=== PATIENT | male | born 1960 | race Caucasian/White ===

== ENCOUNTER → 2024-12-04 12:26 | Outpatient (CLI) | payer OTHER, MEDICARE, SELFPAY ==
--- NOTE | 2024-12-04 12:30 | DI.RAD.S_ITS ---
PROCEDURE: XR KNEE RT 3V INDICATIONS: Chronic R knee pain TECHNIQUE: 3 views of the knee were acquired. COMPARISON: None. FINDINGS AND IMPRESSION: Moderate to severe tricompartmental osteoarthritic changes with joint space narrowing and significant osteophytes, worst in the medial compartment. Chondrocalcinosis and intra-articular debris and ossified bodies are suspected. [id number] joint effusion. Possible soft tissue calcifications in the proximal calf. Age-indeterminate possible deformities of the proximal tibial shaft and the lateral tibial plateau. Correlate with history of trauma. If there is high concern for further derangement, consider MRI evaluation. Dictated by: Ishaan Constantino M.D. on 12/04/2024 at 16:01 Approved by: Ishaan Constantino M.D. on 12/04/2024 at 16:02
== END ==
PROVIDERS: PCP Family Medicine; Referring Provider Family Medicine; Visit Provider Family Medicine
DX: M25.561 Pain in right knee (principal); M25.461 Effusion, right knee
CPT/HCPCS: 73562

== ENCOUNTER → 2024-12-13 11:42 | Outpatient (CLI) | payer OTHER, MEDICARE, SELFPAY ==
--- NOTE | 2024-12-13 12:01 | DI.US.S_ITS ---
PROCEDURE: US PERIPH VENOUS LOW EXTREM RT INDICATIONS: Right calf swelling, pain, redness TECHNIQUE: Real-time imaging, as well as color and pulse Doppler interrogation, were performed of the lower extremity deep veins from the inguinal ligament to the popliteal fossa, with documentation of the visualized calf veins. COMPARISON: None. FINDINGS: The common femoral, femoral, popliteal, and the visualized calf veins are normally compressible, and free of intraluminal thrombus. Color and pulse Doppler demonstrate normal phasic intraluminal flow. There is normal augmentation response to distal compression maneuver. IMPRESSION: No acute pulmonary process. Dictated by: Britney Li M.D. on 12/13/2024 at 15:26 Approved by: Britney Li M.D. on 12/13/2024 at 15:26
== END ==
PROVIDERS: PCP Family Medicine; Referring Provider Orthopaedic Surgery Adult Reconstructive Orthopaedic Surgery; Visit Provider Orthopaedic Surgery Adult Reconstructive Orthopaedic Surgery
DX: M17.11 Unilateral primary osteoarthritis, right knee (principal); M79.89 Other specified soft tissue disorders; M79.669 Pain in unspecified lower leg
CPT/HCPCS: 93971; 99214

== ENCOUNTER 2025-02-04 06:57 | Emergency (ER) | payer MEDICARE, OTHER, SELFPAY ==
[2025-02-04] VITALS (10 sets, daily range): BP systolic 110–160; BP diastolic 58–76; PULSE 48–62; RESP 13–18; O2SAT 95–97; BMI 38.7
--- NOTE | 2025-02-04 07:06 | DI.RAD.S_ITS ---
PROCEDURE: XR CHEST 1V INDICATIONS: Chest Pain TECHNIQUE: One view of the chest was acquired. COMPARISON: None. FINDINGS: Surgical changes and devices: None. Lungs and pleura: Mild diffuse interstitial prominence. No pleural effusions or pneumothorax. Mediastinum: Mediastinal contours appear normal. Heart size is normal. Bones and chest wall: No suspicious bony lesions. Overlying soft tissues appear unremarkable. IMPRESSION: Mild diffuse interstitial prominence. Dictated by: Bubba Noonan M.D. on 02/04/2025 at 8:40 Approved by: Bubba Noonan M.D. on 02/04/2025 at 8:41
--- NOTE | 2025-02-04 07:06 | EKG_ITS ---
[address] [address] Test Date: 2025-02-04 Pat Name: Bryon Nicholas Department: Room: Gender: Male Child'S Nurse: QUAN : 1960 Requested By: Order Number: [id number] Reading MD: Gildardo David Measurements Intervals Brave Rate: 59 P: 39 DE: 164 QRS: 11 QRSD: 94 T: 21 QT: 412 QTc: 407 Interpretive Statements Poor data quality, interpretation may be adversely affected Sinus bradycardia with sinus arrhythmia Inferior infarct , age undetermined Electronically Signed On 02-04-2025 10:20:42 PDT by Gildardo David
[2025-02-04] MEDS: ASPIRIN 81 MG CHEW TAB 324 MG PO (07:35)
[2025-02-04 07:41] LABS: INR 1.1 (0.9-1.3); Prothrombin Time 11.9 SECONDS (9.4-12.5)
[2025-02-04 07:42] LABS: Add Manual Diff / Slide Review NO; Hematocrit 47.6 % (41-53); Hemoglobin 16.4 g/dL (13.5-17.5); Lymphocytes Absolute Auto 1500 /uL (1100-4500); Mean Corpuscular HGB Conc 34.5 % (30-36); Mean Corpuscular Hemoglobin 31.5 PG (26-34); Mean Corpuscular Volume 91.3 fL (80-100)
[2025-02-04 07:44] LABS: PTT Partial Thromboplastin Tim 34 SECONDS (25.1-36.5)
[2025-02-04 07:46] LABS: Platelet Count 264 X10^3/uL (150-400)
[2025-02-04 07:47] LABS: Alanine Aminotransferase 74 IU/L (<50); Albumin 4.9 g/dL (3.5-5.0); Albumin Globulin Ratio 1.3 (1.0-2.8); Alkaline Phosphatase 65 U/L (38-126); Blood Urea Nitrogen 19 mg/dL (9-20); Calcium 9.6 mg/dL (8.4-10.2); Carbon Dioxide 23 mmol/L (22-32); Chloride 101 mmol/L (98-107); Creatine Kinase 64 U/L (55-170); Estimated Glomerular Filt Rate > 60 mL/min (>60); Globulin 3.8 g/dL (1.7-4.1); Glucose 113 mg/dL (70-99); HEMOLYSIS 24 (0-50); Lipase 108 U/L (23-300); Magnesium 2.0 mg/dL (1.6-2.3); Potassium 4.2 mmol/L (3.4-5.1); Sodium 137 mmol/L (137-145); Total Protein 8.7 g/dL (6.3-8.2)
[2025-02-04 07:58] LABS: NT-proBNP (BNP-Adult 18+) 33 pg/mL (<125); Troponin I < 0.012 ng/mL (0.01-0.034)
--- NOTE | 2025-02-04 08:35 | ED.CHESTPAIN ---
HPI - Chest Pain General Chief Complaint: Chest Pain Stated Complaint: Chest pain, Stomach pain x 2 days Time Seen by Provider: 02/04/25 07:44 Source: patient Mode of arrival: Ambulatory Limitations: no limitations History of Present Illness HPI narrative: 64-year-old male patient with a history of hypertension, dyslipidemia, type 2 diabetes, obesity and chronic atypical chest pain who presents with worsening of his chronic chest pain over the last 2 days with central and left-sided stabbing in pressure-like pain along with upper abdominal discomfort off and on. Nausea but no vomiting. No shortness of breath or diaphoresis. Patient has had past workup including nuclear cardiac stress test x2 which was negative. HIDA scan and barium swallow which were negative other than diminished ejection fraction of 20% on the HIDA scan. Patient underwent laparoscopic cholecystectomy about 30 months ago. Currently symptoms are nearly resolved. Perhaps 07/26 discomfort. Duration: intermittent and improved Onset: during rest Pain location: substernal, left chest and epigastric Related Data Home Medications ?Medication ?Instructions ?Recorded ?Confirmed lantanprost eye drops 1 drp EYE-BOTH BID 12/04/24 12/13/24 lubiprostone 24 mcg capsule 24 mcg PO DAILY PRN 12/04/24 12/13/24 metformin 500 mg tablet,extended 1,000 mg PO DAILY 12/04/24 12/13/24 release 24 hr nebivolol 10 mg tablet 10 mg PO DAILY 12/04/24 12/13/24 Held on 02/04/25. Instructions: bradycardia olmesartan 40 1 tab PO DAILY 12/04/24 12/13/24 mg-hydrochlorothiazide 25 mg tablet (Benicar HCT) omeprazole 40 mg capsule,delayed 40 mg PO DAILY 12/04/24 12/13/24 release rosuvastatin 5 mg tablet 5 mg PO DAILY 12/04/24 12/13/24 semaglutide 7 mg tablet (Rybelsus) 7 mg PO DAILY 12/04/24 12/13/24 testosterone 1.62 % (20.25 mg/1.25 1 packet topical DAILY 12/04/24 12/13/24 gram) transdermal gel packet Previous Rx's ?Medication ?Instructions ?Recorded felodipine 2.5 mg tablet,extended 2.5 mg PO DAILY #90 tabs 12/04/24 release 24 hr lorazepam 1 mg tablet 1 mg PO BID-TID PRN anxiety #90 02/04/25 tabs nebivolol 5 mg tablet 5 mg PO DAILY #90 tabs 02/04/25 oxycodone 10 mg tablet 10 mg PO TID PRN pain #90 tabs 02/04/25 tramadol 50 mg tablet 50 - 100 mg (1 - 2 x 50 mg) PO 02/04/25 Q6-8H PRN mild pain #90 tabs Allergies Allergy/AdvReac Type Severity Reaction Status Date / Time No Known Drug Allergies Allergy Verified 12/13/24 10:27 Review of Systems Review of Systems Narrative: GENERAL: Denies chills, fatigue, malaise, fever, sweats. HEENT: Denies sinus pain, ear pain, sore throat, difficulty swallowing, dizziness. RESPIRATORY: Denies dyspnea, cough, wheezing, hemoptysis, sputum. CARDIOVASCULAR: See HPI. Denies palpitations, orthopnea, edema, GASTROINTESTINAL: Denies vomiting, abdominal pain, diarrhea, constipation, melena. : Denies dysuria, frequency, incontinence, hematuria, urinary retention. MUSCULOSKELETAL: denies weakness, joint pain, or bony pain SKIN: Denies rash, skin lesions, or other NEUROLOGIC: Denies weakness, headache, numbness, change in speech, confusion, seizures, incoordination. PSYCHIATRIC: No concerning psychosocial issues. 12 point review of systems is negative except for those stated above Patient History Medical History (Updated 02/04/25 @ 09:31 by Hollis Gavin DO) Personal history of peptic ulcer disease GERD with esophagitis Primary osteoarthritis of right knee Type 2 diabetes mellitus Hyperlipidemia Recurrent knee pain Hypertension Surgical History History of meniscectomy of right knee Exam Narrative Exam Narrative: GENERAL: 64 year old patient appears stated age. Well-developed patient, in mild distress. HEAD: Atraumatic. Normocephalic. EYES: Pupils equal round and reactive. Extraocular motions intact. No scleral icterus. No injection or drainage. CARDIOVASCULAR: Regular rate and rhythm without murmurs, gallops, or rubs. RESPIRATORY: Clear to auscultation. Breath sounds equal bilaterally. No wheezes, rales, or rhonchi. GASTROINTESTINAL: Abdomen soft, non-tender, nondistended. EXTREMITIES: No edema or joint tenderness. BACK: Nontender without deformity or crepitance. No flank tenderness. NEURO: AOx3. SKIN: No rash or erythema of visible areas Initial Vital Signs Initial Vital Signs: Vital Signs Blood Pressure 160/76 H 02/04/25 07:07 Course Orders Ordered: Discontinued Medications Aspirin (Aspirin 81 Mg Chew Tab) 324 mg PO NOW ONE Stop: 02/04/25 07:07 Last Admin: 02/04/25 07:35 Dose: 324 mg Documented By: HIRAL Vital Signs Vital signs: Vital Signs - 8 hr 02/04/25 07:07 02/04/25 07:08 02/04/25 07:11 Pulse Rate 62 62 Respiratory Rate 17 18 Blood Pressure 160/76 H 160/76 H Pulse Oximetry 97 Oxygen Delivery Method Room Air 02/04/25 07:15 02/04/25 07:15 02/04/25 07:30 Pulse Rate 58 L 52 L Respiratory Rate 15 15 Blood Pressure 139/65 Pulse Oximetry 97 95 Oxygen Delivery Method 02/04/25 07:31 02/04/25 07:31 02/04/25 07:45 Pulse Rate 51 L Respiratory Rate 17 Blood Pressure 118/67 140/70 Pulse Oximetry 95 Oxygen Delivery Method 02/04/25 07:45 02/04/25 08:00 02/04/25 08:00 Pulse Rate 59 L 49 L Respiratory Rate 18 14 Blood Pressure 110/58 L Pulse Oximetry 96 95 Oxygen Delivery Method 02/04/25 08:15 02/04/25 08:15 Pulse Rate 51 L Respiratory Rate 14 Blood Pressure 115/59 L Pulse Oximetry 95 Oxygen Delivery Method MDM - Chest Pain Lab Data Attestation: I reviewed the patient's lab results. Lab results narrative: Unremarkable with negative troponin 02/04/25 07:17 02/04/25 07:17 Labs: Lab Results 02/04/25 Range/Units 07:17 WBC 9.1 (4.5-11.0) X10^3/uL RBC 5.21 (4.5-5.9) X10^6/uL Hgb 16.4 (13.5-17.5) g/dL Hct 47.6 (41-53) % MCV 91.3 (80-100) fL MCH 31.5 (26-34) PG MCHC 34.5 (30-36) % RDW 15.1 H (11.6-14.8) % Plt Count 264 (150-400) X10^3/uL Neut % (Auto) 70.0 (50-75) % Lymph % (Auto) 17.1 L (25-40) % [place] % (Auto) 11.2 (3-14) % Eos % (Auto) 1.0 L (2-4) % Baso % (Auto) 0.7 (0-2) % Neut # (Auto) 6400 (1799-4507) /uL Lymph # (Auto) 1500 (7996-3784) /uL [place] # (Auto) 1000 H (0-900) /uL Eos # (Auto) 100 (0-450) /uL Baso # (Auto) 100 (0-100) /uL PT 11.9 (9.4-12.5) SECONDS INR 1.1 (0.9-1.3) APTT 34 (25.1-36.5) SECONDS Sodium 137 (137-145) mmol/L Potassium 4.2 (3.4-5.1) mmol/L Chloride 101 (98-107) mmol/L Carbon Dioxide 23 (22-32) mmol/L BUN 19 (9-20) mg/dL Creatinine 0.91 (0.66-1.25) mg/dL Estimated GFR > 60 (>60) mL/min BUN/Creatinine Ratio 20.9 (6-22) Glucose 113 H (70-99) mg/dL Calcium 9.6 (8.4-10.2) mg/dL Magnesium 2.0 (1.6-2.3) mg/dL Total Bilirubin 0.9 (0.2-1.3) mg/dL AST 61 H (17-59) IU/L ALT 74 H (<50) IU/L Alkaline Phosphatase 65 (38-126) U/L Total Creatine Kinase 64 (55-170) U/L Troponin I < 0.012 (0.01-0.034) ng/mL NT-Pro-B Natriuret Pep 33 (<125) pg/mL Total Protein 8.7 H (6.3-8.2) g/dL Albumin 4.9 (3.5-5.0) g/dL Globulin 3.8 (1.7-4.1) g/dL Albumin/Globulin Ratio 1.3 (1.0-2.8) Lipase 108 (23-300) U/L Imaging Data Chest x-ray: Attestation: I personally reviewed and interpreted this imaging study as follows: (Subtle interstitial prominence but otherwise unremarkable) ECG Data Attestation: I personally reviewed and interpreted this ECG as follows: (Mild sinus bradycardia with sinus arrhythmia. Rate 59. Inferior Q-waves. Normal axis and intervals. Otherwise no ischemic changes ) MDM Narrative Medical decision making narrative: Multiple causes of chest pain considered including RI, PE, pneumothorax, pneumonia, aortic dissection, and pleurisy. Patient reports no radiation, no diaphoresis, no provocation with exertion, and no vomiting Based on history, physical exam and workup including negative chest x-ray, EKG and lab work this appears to be noncardiac and a mild exacerbation of his chronic chest symptoms for which he has had workup in the past. I do not believe he needs further workup in the emergency room based on these findings. Patient is instructed to monitor symptoms. Continue current medications and follow up with his primary care provider within the next week. Return to the ER if worse. Discharge Plan Departure Patient Disposition: Home Clinical Impression: Atypical chest pain Instructions: DI for Angina, DI for Atypical Chest Pain Activity Restrictions/Additional Instructions: Assessment: Exacerbation of chronic atypical chest pain with negative workup indicating probable non cardiac cause. Plan: Continue current medications and monitor symptoms. Contact your doctor for further follow-up within the next week. Return to the ER if worse Prescriptions: No Action oxycodone 10 mg tablet 10 mg PO TID PRN (Reason: pain) Qty: 90 0RF tramadol 50 mg tablet 50 - 100 mg PO Q6-8H PRN (Reason: mild pain) Qty: 90 0RF Rx Instructions: Use instead of oxycodone for milder pain lorazepam 1 mg tablet 1 mg PO BID-TID PRN (Reason: anxiety) Qty: 90 1RF nebivolol 5 mg tablet 5 mg PO DAILY Qty: 90 1RF metformin 500 mg tablet extended release 24 hr 1,000 mg PO DAILY olmesartan-hydrochlorothiazide [Benicar HCT] 40-25 mg tablet 1 tab PO DAILY Rybelsus 7 mg tablet 7 mg PO DAILY lubiprostone 24 mcg capsule 24 mcg PO DAILY PRN rosuvastatin 5 mg tablet 5 mg PO DAILY omeprazole 40 mg capsule,delayed release(DR/EC) 40 mg PO DAILY testosterone 1.62 % (20.25 mg/1.25 gram) gel in packet 1 packet topical DAILY Patient Comments: pump nebivolol 10 mg tablet 10 mg PO DAILY lantanprost eye drops 1 drp EYE-BOTH BID felodipine 2.5 mg tablet extended release 24 hr 2.5 mg PO DAILY Qty: 90 3RF Referrals: Hollis Gavin DO [Primary Care Provider, Family Practice] Stand Alone Forms: Patient Portal/API
--- NOTE | 2025-02-04 08:58 | PC.NURSE ---
ED physician aware HR varies between 46-50. OK to d/c. Pain 0/10
== END 2025-02-04 09:03 | disposition home or self-care (01) ==
PROVIDERS: Emergency Provider Emergency Medicine; PCP Family Medicine
DX: R07.89 Other chest pain (principal)
CPT/HCPCS: 36415; 71045; 80053; 82550; 83690; 83735; 83880; 84484; 85025; 85610; 85730; 93005; 99284

== ENCOUNTER → 2025-02-05 11:13 | Outpatient (CLI) | payer OTHER, MEDICARE, SELFPAY ==
--- NOTE | 2025-02-05 11:19 | DI.CT.S_ITS ---
PROCEDURE: CT ABDOMEN PELVIS W CON INDICATIONS: Worsening atypical chest pain, esophagitis noncardiac w GI TECHNIQUE: After the administration of intravenous contrast, axial sections acquired from the lung bases to the pubic symphysis. Coronal and sagittal reformats were performed. For radiation dose reduction, the following was used: automated exposure control, adjustment of mA and/or kV according to patient size. COMPARISON: None. FINDINGS: Image quality: Diagnostic. Lower Chest: No significant findings. ABDOMEN: Liver: No solid mass. Diffuse fatty liver infiltration is noted. Gallbladder: Removed. Biliary ducts: No biliary dilation. Pancreas: No ductal dilation. Spleen: Size is within normal limits. Adrenal Glands: No adrenal nodules. Kidneys and Ureters: No hydronephrosis. No solid mass. Numerous simple cysts are seen. Along the posterior aspect of the left kidney, there is an exophytic lesion seen that measures 4.7 cm and 22 Hounsfield units. Stomach and Bowel: The stomach is decompressed at the time of this study, limiting its evaluation. Normal colonic caliber, without significant wall thickening. No dilated loops of small bowel are seen. Peritoneum: No abnormal intraperitoneal fluid. No free air. Ventral Wall: No significant ventral hernia. Abdominal Nodes: No retroperitoneal or mesenteric adenopathy by size criteria. Vessels: Aorta and inferior vena cava are normal in size. Atherosclerotic calcification is noted. PELVIS: Pelvic Organs: Unremarkable. Bladder: No bladder wall thickening, accounting for underdistention. Pelvic Nodes: No enlarged lymph nodes. Miscellaneous: There is a mild fat containing left inguinal hernia. Bones: No aggressive osseous abnormality. At least moderate lumbar spine degenerative change can be seen. IMPRESSION: No imaging explanation is found for this patient's presenting symptoms. Likely complex cyst seen involving the left kidney posteriorly. Further workup is recommended, beginning with a dedicated renal ultrasound. Additional findings: Fatty liver infiltration Cholecystectomy Mild fat containing left inguinal hernia Dictated by: Renzo Bryant M.D. on 02/05/2025 at 12:47 Approved by: Renzo Bryant M.D. on 02/05/2025 at 12:50
== END ==
LOC: CT 11:18
PROVIDERS: PCP Family Medicine; Referring Provider Family Medicine; Visit Provider Family Medicine
DX: N28.1 Cyst of kidney, acquired (principal); N28.9 Disorder of kidney and ureter, unspecified; K40.90 Unilateral inguinal hernia, without obstruction or gangrene, not specified as recurrent; R07.89 Other chest pain; K21.00 Gastro-esophageal reflux disease with esophagitis, without bleeding; K76.0 Fatty (change of) liver, not elsewhere classified; M47.816 Spondylosis without myelopathy or radiculopathy, lumbar region; Z87.11 Personal history of peptic ulcer disease; Z90.49 Acquired absence of other specified parts of digestive tract
CPT/HCPCS: 74177; Q9967

== ENCOUNTER → 2025-02-11 10:57 | Outpatient (CLI) | payer OTHER, MEDICARE, SELFPAY ==
--- NOTE | 2025-02-11 11:00 | DI.US.S_ITS ---
PROCEDURE: US RENAL COMPLETE INDICATIONS: RENAL MASS TECHNIQUE: Real-time scanning was performed of the kidneys and bladder, with image documentation. COMPARISON: [facility], CT, CT ABDOMEN PELVIS W CON, 02/05/2025, 12:31. FINDINGS: Kidneys: Kidneys are normal in size. Right kidney measures 14.7 cm long; left kidney measures 14.6 cm long. Right renal cortical thickness is 1.9 cm; left renal cortical thickness is 1.7 cm. Renal cortical echotexture is normal. No hydronephrosis or nephrolithiasis. Multiple bilateral renal cysts are visualized. 2 noted in the right kidney measuring 5.2 x 3.9 x 5.2 cm and 2.6 x 2.7 x 1.6 cm, respectively. Multiple left renal with the largest measuring 4.1 x 3.9 x 4.5 cm. This is seen along the posterior margin of the left kidney. This appears similar in size and location of left renal finding described on CT. No solid mass lesions identified on either side. Bladder: Pre-void bladder volume is 33 mL. Post-void residual is 0 mL. Pre- void images demonstrate no intraluminal masses or stones. Miscellaneous: No free pelvic fluid. IMPRESSION: No evidence for obstructive uropathy. Multiple bilateral renal cysts with the largest seen in the posterior margin of the left kidney measuring up to 4.5 cm. This is similar in size and location compared to recent CT and likely correlates with previously described complex cyst. There are no solid renal masses on either side. Dictated by: Ralph Wilson M.D. on 02/11/2025 at 15:26 Approved by: Ralph Wilson M.D. on 02/11/2025 at 15:33
== END ==
PROVIDERS: PCP Family Medicine; Referring Provider Family Medicine; Visit Provider Family Medicine
DX: N28.89 Other specified disorders of kidney and ureter (principal); N28.1 Cyst of kidney, acquired
CPT/HCPCS: 76770